=== PATIENT | male | born 1935 | race Caucasian/White ===

== ENCOUNTER 2016-09-21 16:53 | Outpatient (CLI) | payer OTHER ==
[2016-09-21 17:14] LABS: EOSINOPHILS % 2.8 % (0.0-6.8); MEAN CORPUSCULAR VOLUME 98.6 fl (80.0-100.0); MONOCYTES % 5.8 % (0.0-11.0); NEUTROPHILS # 4.5 # k/uL (1.4-7.7)
[2016-09-21 17:38] LABS: eGFR (African) > 60; eGFR (Non-African) > 60
== END 2016-09-21 17:00 ==
LOC: LAB 16:53
PROVIDERS: ATTEND Family Medicine
DX: R63.4 Abnormal weight loss (principal); R73.9 Hyperglycemia, unspecified
CPT/HCPCS: 36415; 80053; 83036; 84443; 85025

== ENCOUNTER 2017-03-14 15:47 | Emergency (ER) | payer OTHER ==
[2017-03-14] MEDS ORDERED: Lidocaine 1% 5ml(IM or SUTURE)(PAIN CLINIC) IJ ONE (16:09)
[2017-03-14 16:10] LABS: BASOPHILS % 0.6 (0.0-1.5); EOSINOPHILS % 1.4 % (0.0-6.8); MEAN CORPUSCULAR HEMOGLOBIN 32.6 pg (28.0-34.0); MEAN CORPUSCULAR VOLUME 99.8 fl (80.0-100.0); MONOCYTES % 4.7 % (0.0-11.0); NEUTROPHILS # 6.5 # k/uL (1.4-7.7)
--- NOTE | 2017-03-14 16:11 | ED Physician Documentation ---
Fall - HISTORIAN Historian: patient - HPI Chief Complaint: Fall Additional Information: Patient was sawing a tree limb down while standing on a ladder at about 12-15 feet off the ground. Tree limb swung and knocked him off the ladder onto the ground. Patient denies any LOC. Patient was ambulating at the scene. Complained of some mild cervical pain and left hip/pelvic pain. Patient brought to the ED in cervical collar. Mentation appeared to be normal at the scene. No complaints of numbness or weakness at the scene. On arrival in the ED patient complains of some mild mid neck pain and left pelvic/hip pain. Denies any VA changes, ARREAGA, nausea, SOB, chest pain, abd pain, difficulties with moving extremities. Onset: just prior to arrival Where: home Context: other (fell from ladder) Associated Symptoms:: no loss of consciousness, dazed (slightly confused for about 1 minute post fall) Location of Pain/Injury: neck, other (left pelvic area) Injury to Right Extremity: hand (dorsum, laceration) Injury to Left Extremity: none Further Comments: yes - ROS CONST: no problems. denies: fever, chills NEURO: denies: dizziness MS/SKIN/LYMPH: neck pain. denies: weakness, numbness, back pain EYES/ENT: none CVS/RESP: none GI/: denies: nausea, vomiting - PAST HX Past History: none Immunizations: tetanus (2011) Allergies/Adverse Reactions: Allergies Allergy/AdvReac Type Severity Reaction Status Date / Time No Known Allergies Allergy Verified 03/14/17 16:21 Home Medications: Ambulatory Orders Medication Instructions Recorded NK [NK] 03/14/17 - SOCIAL HX Smoking History: non-smoker Alcohol Use: none Drug Use: none - FAMILY HX Family History: no significant history - REVIEWED ASSESSMENTS Nursing Assessment Reviewed: Yes Vitals Reviewed: Yes Procedures Wound Location: upper extremity (right wirist) Wound Length: 2.6 cm Wound's Depth, Shape: superficial, irregular Wound Explored: clean Betadine Prep?: No (hexadine) Anesthesia: 1% Lidocaine Volume of Anesthetic: 1cc Wound Repaired With: sutures Suture Size/Type: 5:0 Number of Sutures: 2 Layer Closure?: No Sterile Dressing Applied?: Yes Splint Applied?: No Sling Applied?: No Progress: smaller superficial right wrist skin tear 1.6cm closed with steri strip, larger skin wound closed with two simple nylon sutures and steri strips. Skin was so thin that if sutures were placed with the rest of the laceration it would probably pull lose when skin is stretched. Progress - Progress Progress: 16:28 while getting x-ray patient complained of some pain tot he left rib area, rib x- rays ordered 17:19 Patient states that he is feeling better but continues to have some pain in the left perilumbar/pelvic area. Some tenderness to palpation over the lower pericevical/shoulder areas bilat. No bony abnl noted. FROM of the neck without pain except over the trapizium. 17:48 Patient ambulating with some pain, voices no new complaints. ED Results Lab/Radiology - Radiology Radiology Impressions: Examination: Plain film ribs History: Injury Findings: 3 views of the ribs demonstrates normal cortical margins. No fracture or dislocation. No underlying parenchymal abnormality. Impression: No rib fracture/abnormality. Examination: Plain film pelvis History: Fall Comparison exams: None provided Findings: Single view of the pelvis demonstrate normal cortical margins. No fracture. No dislocation. Scattered ossific spurring. Superior and inferior pubic rami and iliac wings are without abnormality. Impression: Degenerative changes. No acute appearing osseous process. Examination: CT cervical spine History: Fall Comparison exams: None provided Technique: CT cervical spine axial imaging with sagittal and coronal reconstruction Findings: Sagittal reconstruction demonstrates normal height of the cervical vertebral bodies. No anterior compression deformity. Mild listhesis C6 on C7. Anterior, lateral, posterior osteophytes. Coronal reconstruction does not demonstrate locked or perched facets. Atlantoaxial degenerative changes. Axial imaging obtained from the skull base through T1 Lamina and pedicles are intact. No ossific density within the central canal. Facet degenerative changes. No prevertebral soft tissue abnormality. Impression: Multilevel degenerative changes. No evidence for vertebral body compression fracture. Examination: CT head without contrast History: Fall Comparison exam: None available Technique: Noncontrast head CT protocol. Findings: Ventricles and sulci are prominent, though consistent for patient age. Cerebrocerebellar parenchyma demonstrates periventricular low attenuation consistent with small vessel disease. No evidence for parenchymal hemorrhage. No evidence for mass or mass effect. No midline shift. Basal ganglia calcifications. No extra axial fluid collections. Partial visualization of the paranasal sinuses, mastoid air cells, orbits, skull and scalp without gross irregularity. Streak artifact from dental hardware. Impression: Age related changes. No acute parenchymal process. No hemorrhage. Examination: Plain film hand History: Injury Comparison exams: None available Findings: 3 views the hand demonstrates osteopenia. Articular degenerative changes. No fracture. No dislocation. No soft tissue abnormality. Impression: Osteopenia and degenerative changes. No acute appearing osseous abnormality. 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 nml. No: periorbital edema, ecchymosis ENT: nml external inspection, no dental injury, no oral injury, airway nml Resp/CVS: chest non-tender (no tenderness to compression), no ecchymosis, breath sounds nml, no resp. distress, heart sounds nml. No: rib tenderness Abdomen: soft, no organomegaly, normal bowel sounds, no abdominal bruit, no distension, non-tender Neuro: oriented x3, CN's nml as tested, sensation nml, motor nml, mood/affect nml, disability case manager nml, reflexes nml Skin: color nml, no rash, other ( 1.6 cm laceration to the dorsum of the right hand.) Back: no CVA tenderness, no vertebral tenderness. No: muscle spasm, vertebral tenderness Extremities: pelvis stable (mild tenderness to the left ischial wing), other ( open wound abrasion to the right hand) Joint: joints nml, nml ROM, Nml gait/weight bearing. No: ligamentous instability - Slime Coma Score Eyes Open: Spontaneous Speech: Oriented Motor: Obeys Commands Discharge Clincal Impression: Multiple contusions, Strain of cervical portion of trapezius muscle Referrals: Jules Arshad MD [Primary Care Provider] - 2 Days Additional Instructions: Cool compress to the areas of pain. Take some Ibuprofen or Tyelnol as needed for pain. If your pain does not seem to be getting better over the next several days to be seen in the clinic or return to the ED. If you have any further problems to return to the ED. Follow head instruction sheet. Have sutures removed in about 7 days. Leave steri strips on for seven days. Condition: Stable Decision to Admit: NO Date of Decison to Admit: 03/14/17 Decision Time: 17:23
[2017-03-14] MEDS ORDERED: DIPH,PERTUSS(ACELL),TET VAC/PF 0.5 ML DISP.SYRIN IM ONE (16:24)
[2017-03-14] MEDS ORDERED: DIPH,PERTUSS(ACELL),TET VAC/PF 0.5 ML DISP.SYRIN IM SCH (17:00)
--- NOTE | 2017-03-14 17:32 | Diagnostic Imaging Report ---
[facility] [address] [facility].[address] [address] Report Submission Date: Mar 14, 2017 5:25:02 PM ROPE SILICA MACHINE OPERATOR Patient Study Name: GHAZALA GONZALEZ Date: Mar 14, 2017 5:14:00 PM ROPE SILICA MACHINE OPERATOR Modality Type: CR Gender: M Description: UPPER EXTREMITY : 36 Institution: [facility] Physician: CECILIO DE LA ROSA Examination: Plain film hand History: Injury Comparison exams: None available Findings: 3 views the hand demonstrates osteopenia. Articular degenerative changes. No fracture. No dislocation. No soft tissue abnormality. Impression: Osteopenia and degenerative changes. No acute appearing osseous abnormality. Electronically signed on Mar 14, 2017 5:25:02 PM ROPE SILICA MACHINE OPERATOR by: Anshu CHRISTENSEN
--- NOTE | 2017-03-14 17:33 | Diagnostic Imaging Report ---
[facility] [address] [facility].[address] [address] Report Submission Date: Mar 14, 2017 4:49:23 PM PLOW MECHANIC Patient Study Name: GHAZALA GONZALEZ Date: Mar 14, 2017 4:28:46 PM PLOW MECHANIC Modality Type: CR Gender: M Description: CHEST : 36 Institution: [facility] Physician: CECILIO DE LA ROSA Examination: Plain film ribs History: Injury Findings: 3 views of the ribs demonstrates normal cortical margins. No fracture or dislocation. No underlying parenchymal abnormality. Impression: No rib fracture/abnormality. Electronically signed on Mar 14, 2017 4:49:23 PM PLOW MECHANIC by: Anshu CHRISTENSEN
--- NOTE | 2017-03-14 17:34 | Diagnostic Imaging Report ---
[facility] [address] [facility].[address] [address] Report Submission Date: Mar 14, 2017 4:47:25 PM REHABILITATION COORDINATOR Patient Study Name: GHAZALA GONZALEZ Date: Mar 14, 2017 4:26:58 PM REHABILITATION COORDINATOR Modality Type: CR Gender: M Description: PELVIS : 36 Institution: [facility] Physician: CECILIO DE LA ROSA Examination: Plain film pelvis History: Fall Comparison exams: None provided Findings: Single view of the pelvis demonstrate normal cortical margins. No fracture. No dislocation. Scattered ossific spurring. Superior and inferior pubic rami and iliac wings are without abnormality. Impression: Degenerative changes. No acute appearing osseous process. Electronically signed on Mar 14, 2017 4:47:25 PM REHABILITATION COORDINATOR by: Anshu CHRISTENSEN
--- NOTE | 2017-03-14 17:35 | Diagnostic Imaging Report ---
[facility] [address] [facility] [address] [place], [place]. [address] Report Submission Date: Mar 14, 2017 4:36:26 PM MUSIC EDUCATOR Patient Study Name: GHAZALA GONZALEZ Date: Mar 14, 2017 4:12:04 PM MUSIC EDUCATOR Modality Type: CT\SR Gender: M Description: CT BRAIN W/O CONTRAST : 36 Institution: [facility] Physician: CECILIO DE LA ROSA Examination: CT head without contrast History: Fall Comparison exam: None available Technique: Noncontrast head CT protocol. Findings: Ventricles and sulci are prominent, though consistent for patient age. Cerebrocerebellar parenchyma demonstrates periventricular low attenuation consistent with small vessel disease. No evidence for parenchymal hemorrhage. No evidence for mass or mass effect. No midline shift. Basal ganglia calcifications. No extra axial fluid collections. Partial visualization of the paranasal sinuses, mastoid air cells, orbits, skull and scalp without gross irregularity. Streak artifact from dental hardware. Impression: Age related changes. No acute parenchymal process. No hemorrhage. Electronically signed on Mar 14, 2017 4:36:26 PM MUSIC EDUCATOR by: Anshu CHRISTENSEN
--- NOTE | 2017-03-14 17:36 | Diagnostic Imaging Report ---
[facility] [address] [facility] [address] [place], [place]. [address] Report Submission Date: Mar 14, 2017 4:43:17 PM IMAGING ADMINISTRATOR Patient Study Name: GHAZALA GONZALEZ Date: Mar 14, 2017 4:14:07 PM IMAGING ADMINISTRATOR Modality Type: CT\SR Gender: M Description: CT C-SPINE W/O CONTRAS : 37 Institution: [facility] Physician: CECILIO DE LA ROSA Examination: CT cervical spine History: Fall Comparison exams: None provided Technique: CT cervical spine axial imaging with sagittal and coronal reconstruction Findings: Sagittal reconstruction demonstrates normal height of the cervical vertebral bodies. No anterior compression deformity. Mild listhesis C6 on C7. Anterior, lateral, posterior osteophytes. Coronal reconstruction does not demonstrate locked or perched facets. Atlantoaxial degenerative changes. Axial imaging obtained from the skull base through T1 Lamina and pedicles are intact. No ossific density within the central canal. Facet degenerative changes. No prevertebral soft tissue abnormality. Impression: Multilevel degenerative changes. No evidence for vertebral body compression fracture. Electronically signed on Mar 14, 2017 4:43:17 PM IMAGING ADMINISTRATOR by: Anshu CHRISTENSEN
[2017-03-14 18:01] VITALS: BP 140/84
== END 2017-03-14 17:55 | disposition home or self-care (01) ==
LOC: ED 15:47
DX: S61.511A Laceration without foreign body of right wrist, initial encounter (principal); S16.1XXA Strain of muscle, fascia and tendon at neck level, initial encounter; T14.8XXA Other injury of unspecified body region, initial encounter; W19.XXXA Unspecified fall, initial encounter; Y93.9 Activity, unspecified; Y99.9 Unspecified external cause status
CPT/HCPCS: 12002; 70450; 71100; 72125; 72170; 73130; 85025; 90471; 90715; 99283

== ENCOUNTER 2017-07-12 09:57 | Outpatient (CLI) | payer OTHER ==
--- NOTE | 2017-07-12 16:27 | Diagnostic Imaging Report ---
CECILIO DE LA ROSA [facility] [address] [facility].[address] [address] Report Submission Date: Jul 12, 2017 11:34:28 AM CDT Patient Study Name: HGAZALA GONZALEZ Date: Jul 12, 2017 10:48:16 AM CDT Modality Type: DX Gender: M Description: SHOULDER : 36 Institution: [facility] Physician: CECILIO DE LA ROSA Examination: Plain film shoulder bilaterally History: BILAT SHOULDERS, RT SHOULDER PAIN. PT STATES TORN TENDON X8 YEARS AGO WITH RECENT PAIN IN THE LAST YEAR (Hx) Comparison exams: None provided Findings: 2 views of the right and left shoulders demonstrate normal cortical margins. No evidence for fracture or dislocation. Acromioclavicular joint degenerative spurring. Right shoulder fixation anchor. No soft tissue abnormality Impression: Acromioclavicular joint degenerative changes. Prior right shoulder surgery. No acute appearing cortical abnormality. Electronically signed on Jul 12, 2017 11:34:28 AM CDT by: Anshu CHRISTENSEN
--- NOTE | 2017-07-12 20:08 | Diagnostic Imaging Report ---
CECILIO DE LA ROSA~ [facility] [address] [facility] [address] [address] ~ ~ ~ ~ Report Submission Date: Jul 12, 2017 11:35:39 AM CDT Patient ~ Study Name: GHAZALA GONZALEZ ~ Date: Jul 12, 2017 11:08:18 AM CDT ~ Modality Type: DX Gender: M ~ Description: CHEST : 36 ~ Institution: [facility] Physician: CECILIO DE LA ROSA ~ ~ ~ Examination: PA and lateral chest. History: Evaluate lung powell. CXR, RT SIDED POSTERIOR BACK PAIN X1 YEAR, NO KNOWN INJURY (Hx) Comparison exam: None provided. Findings: PA lateral chest demonstrate a normal cardiac and mediastinal silhouette. Mild tortuosity of the thoracic aorta. No focal infiltrate.~ No blunting of the costophrenic margins. Mild articular degenerative changes. Impression: No acute pulmonary process. ~ Electronically signed on Jul 12, 2017 11:35:39 AM CDT by: Anshu CHRISTENSEN
--- NOTE | 2017-07-12 20:10 | Diagnostic Imaging Report ---
CECILIO DE LA ROSA~ [facility] [address] [facility].[address] [address] ~ ~ ~ ~ Report Submission Date: Jul 12, 2017 11:37:06 AM CDT Patient ~ Study Name: GHAZALA GONZALEZ ~ Date: Jul 12, 2017 10:58:05 AM CDT ~ Modality Type: DX Gender: M ~ Description: CHEST : 36 ~ Institution: [facility] Physician: CECILIO DE LAR OSA ~ ~ ~ Examination: Plain film right ribs History: RT RIBS, RT SIDED POSTERIOR BACK PAIN X1 YEAR, NO KNOWN INJURY (Hx) Findings: 3 views of the right ribs demonstrates normal cortical margins. No fracture or dislocation. Underlying parenchymal without abnormality. Impression: No rib fracture/abnormality. ~ Electronically signed on Jul 12, 2017 11:37:06 AM CDT by: Anshu CHRISTENSEN
== END 2017-07-12 10:00 ==
LOC: RAD 09:57
PROVIDERS: ATTEND Family Medicine
DX: R07.89 Other chest pain (principal); M25.519 Pain in unspecified shoulder
CPT/HCPCS: 71046; 71100

== ENCOUNTER 2017-10-25 10:58 | Outpatient (CLI) | payer OTHER ==
[2017-10-25 12:02] LABS: eGFR (African) > 60; eGFR (Non-African) > 60
== END 2017-10-25 11:00 ==
LOC: LAB 10:58
PROVIDERS: ATTEND Family Medicine
DX: Z00.00 Encounter for general adult medical examination without abnormal findings (principal); R73.9 Hyperglycemia, unspecified
CPT/HCPCS: 36415; 80053; 80061; 83036

== ENCOUNTER 2017-11-07 10:02 | Emergency (ER) | payer OTHER ==
--- NOTE | 2017-11-07 10:10 | ED Physician Documentation ---
General Adult - HISTORIAN Historian: patient - HPI Chief Complaint: General Adult Additional Information: 82-year-old white male who states he woke up with some tingling sensation in his right upper arm going down into the forearm. Does not seem to be in any dermatome distribution. Patient stated he sleeps on his shoulder wrong it does cause some pain but that he is never had any numbness before. Will Patient denies any weakness. Patient denies any problem with any weakness or numbness to the facial area denies any speech difficulties. Patient is not had a history of TIAs or CVA. Timing: persistent since (this AM when he woke up) - ROS CONST: no problems. denies: fever, chills - PAST HX Past History: other (R rotator cuff tear) Other History: none Surgeries/Procedures: cholecystectomy, other (arthroscopy left knee, Rotator cuff repair, cataract extraction) Immunizations: referred to PCP Allergies/Adverse Reactions: Allergies Allergy/AdvReac Type Severity Reaction Status Date / Time No Known Allergies Allergy Verified 11/07/17 10:20 Home Medications: Ambulatory Orders Medication Instructions Recorded NK 11/07/17 - SOCIAL HX Smoking History: non-smoker Alcohol Use: none Drug Use: none - FAMILY HX Family History: No - VITAL SIGNS Vital Signs: Vital Signs Temp Pulse Resp BP Pulse Ox 140/84 03/14/17 17:58 - REVIEWED ASSESSMENTS Nursing Assessment Reviewed: Yes Progress - Progress Progress: 11:38 Patient states that the tingling sensation is gone. arm is back to normal ED Results Lab/Radiology - Radiology Radiology Impressions: CT brain noncontrast CLINICAL HISTORY: PT STATES NUMBING, TINGLING SENSATION TO RIGHT ARM THIS MORNING. (Hx) / ITS.REASON tingling to right arm TECHNIQUE: 5 mm contiguous axial images of the brain, noncontrast. FINDINGS: There is no evidence of intracranial mass effect, hemorrhage, or acute hydrocephalus. The lateral ventricles are symmetrical and the 4th ventricle is midline without shift. No acute brain parenchymal changes or extra-axial fluid collections are identified. The posterior fossa contents are within normal limits. There is age related white matter disease. The calvarium is intact. The visualized sinuses and mastoid air cells are clear. IMPRESSION: No acute intracranial process. General Adult Physical Exam - PHYSICAL EXAM GENERAL APPEARANCE: mild distress NECK: normal inspection, supple, other (no crepitius). No: lymphadenopathy RESPIRATORY: no resp distress, chest non-tender, breath sounds normal. No: wheezes, rales, rhonchi CVS: reg rate & rhythm, heart sounds normal, equal pulses, no murmur ABDOMEN: soft, no organomegaly, normal bowel sounds BACK: normal inspection, no CVA tenderness SKIN: warm/dry, normal color EXTREMITIES: non-tender, normal range of motion, no evidence of injury NEURO: oriented X3, CN's nml as tested, motor nml (5plus/5plus all motor groups), mood/affect nml, cognition normal. No: sensation nml (some decrease tingling sensation tot her right upper arm and proximal forearm. No dermatome distribution noted) Discharge Clincal Impression: Numbness and tingling Referrals: Jules Arshad MD [Primary Care Provider] - 2 Days Additional Instructions: I will schedule a nerve conduction test for further evaluation. If you have any further problems to be seen in clinic or return to the ED. Condition: Stable Disposition: 01 HOME, SELF-CARE Decision to Admit: NO Date of Decison to Admit: 11/07/17 Decision Time: 12:02
[2017-11-07 10:43] LABS: BASOPHILS % 0.5 (0.0-1.5); EOSINOPHILS % 2.1 % (0.0-6.8); MEAN CORPUSCULAR HEMOGLOBIN 33.2 pg (28.0-34.0); MEAN CORPUSCULAR VOLUME 101.2 fl (80.0-100.0); MONOCYTES % 6.6 % (0.0-11.0); NEUTROPHILS # 3.6 # k/uL (1.4-7.7)
[2017-11-07 10:57] LABS: eGFR (African) > 60; eGFR (Non-African) > 60
--- NOTE | 2017-11-07 11:38 | Diagnostic Imaging Report ---
[facility] [address] [facility].[address] [address] Report Submission Date: Nov 07, 2017 11:10:10 AM CDT Patient Study Name: GHAZALA GONZALEZ Date: Nov 07, 2017 10:47:32 AM CDT Modality Type: CT\SR Gender: M Description: CT BRAIN W/O CONTRAST : 36 Institution: [facility] Physician: CECILIO DE LA ROSA CT brain noncontrast CLINICAL HISTORY: PT STATES NUMBING, TINGLING SENSATION TO RIGHT ARM THIS MORNING. (Hx) / ITS.REASON tingling to right arm TECHNIQUE: 5 mm contiguous axial images of the brain, noncontrast. FINDINGS: There is no evidence of intracranial mass effect, hemorrhage, or acute hydrocephalus. The lateral ventricles are symmetrical and the 4th ventricle is midline without shift. No acute brain parenchymal changes or extra-axial fluid collections are identified. The posterior fossa contents are within normal limits. There is age related white matter disease. The calvarium is intact. The visualized sinuses and mastoid air cells are clear. IMPRESSION: No acute intracranial process. Electronically signed on Nov 07, 2017 11:10:10 AM CDT by: Mario CHRISTENSEN
[2017-11-07 12:21] VITALS: BP 128/62
== END 2017-11-07 12:18 | disposition home or self-care (01) ==
LOC: ED 10:02
DX: R20.2 Paresthesia of skin (principal)
CPT/HCPCS: 70450; 80053; 85025

== ENCOUNTER 2018-11-13 09:08 | Outpatient (CLI) | payer OTHER ==
[2018-11-13 09:40] LABS: A1C 5.4 % (<5.7)
[2018-11-13 09:56] LABS: HDL 52 mg/dL (>40); eGFR (Non-African) > 60
== END 2018-11-13 09:10 ==
LOC: LAB 09:08
PROVIDERS: ATTEND Family Medicine
DX: E78.5 Hyperlipidemia, unspecified (principal)
CPT/HCPCS: 36415; 80053; 80061; 83036; 84550